=== PATIENT | male | born 1970 | race Caucasian/White ===

== ENCOUNTER 2017-12-10 10:58 | Outpatient (CLI) | payer BC | END 2017-12-10 10:59 | disposition home or self-care (01) | LOC: BICRAD 10:58 | PROVIDERS: ATTEND Family Medicine | DX: M54.2 Cervicalgia (principal); M47.892 Other spondylosis, cervical region | CPT/HCPCS: 72040 ==

== ENCOUNTER 2018-04-12 08:51 | Outpatient (CLI) | payer BC | END 2018-04-12 08:52 | disposition home or self-care (01) | LOC: BICULT 08:51 | PROVIDERS: ATTEND Family Medicine | DX: M54.2 Cervicalgia (principal); R22.1 Localized swelling, mass and lump, neck; M79.9 Soft tissue disorder, unspecified; R93.8 Abnormal findings on diagnostic imaging of other specified body structures | CPT/HCPCS: 76536 ==

== ENCOUNTER 2018-04-26 08:18 | Outpatient (CLI) | payer BC ==
--- NOTE | 2018-04-26 10:17 | MRI ---
MRI OF THE NECK WITH IV CONTRAST: Date: 04/26/18 INDICATION: Left neck and left clavicle edema. TECHNIQUE: Multiplanar, multisequence MR images were obtained of the soft tissues of the neck with IV contrast. 20 mL of MultiHance was utilized for the exam. No comparisons are available. There is a poorly encapsulated fat signal intensity mass lesion within the supraclavicular region mateo suring 5.0 x 5.1 x 6.1 cm approximately. There are some vessels passing along the margin, as well as within the posterior aspect of the lesion without overt evidence of septation or soft tissue nodulari ty. No pathologically enlarged lymph nodes are evident grossly within the field of view. There is a s mall suspected hemangioma within the right aspect of T1 measuring 10.7 mm. IMPRESSION: Lipomatous lesion of the left supraclavicular region without overt evidence of complexity. There is v asculature running through the posterior aspect of the lesion and along the margin. Findings can be s een with a well differentiated lipoma versus an atypical lipoma. If patient is having clinical sympto ms such as pain or mass effect from this lesion, atypical lipomatous lesion would be of concern. If p atient is asymptomatic, this may reflect only a supraclavicular lipoma, and a follow-up examination i n 6-12 months to document stability is recommended. POS: [facility]
[2018-04-26] MEDS ORDERED: Gadobenate Dimeglumine 529 MG/1 ML (20ML VIAL) ONE (16:42)
== END 2018-04-26 08:19 | disposition home or self-care (01) ==
LOC: MRI 08:18
PROVIDERS: ATTEND Family Medicine
DX: M54.2 Cervicalgia (principal); D48.5 Neoplasm of uncertain behavior of skin; R60.0 Localized edema; D17.0 Benign lipomatous neoplasm of skin and subcutaneous tissue of head, face and neck
CPT/HCPCS: 70543; A9579